=== PATIENT | female | born 2005 | race Caucasian/White ===

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

== ENCOUNTER 2024-11-26 05:27 | Inpatient (IN) ==
--- OUTSIDE RECORDS SUMMARY | 2024-11-26 05:34 | EXTERNAL MEDICAL SUMMARY RPT | Continuity of Care Document ---
Author Organization [place] Address [address] [address] Phone Problems date description facility 2024-09-24 13:45 Supervision of high risk , unspecified, second trimester [facility] 2024-09-24 13:45 Encounter for test, r esult positive [facility] 2024-09-24 13:45 Encounter for superv ision of normal , unspecified, unspecified trimester [facility] 2024-09-24 14:25 Supervision of high risk , unspecified, second trimester [facility] 2024-09-24 14:25 Encounter for test, r esult positive [facility] 2024-09-24 14:25 Encounter for superv ision of normal , unspecified, unspecified trimester [facility] 2024-09-25 00:04 Supervision of high risk , unspecified, second trimester [facility] 2024-09-25 00:04 Encounter for test, r esult positive [facility] 2024-09-25 00:04 Encounter for superv ision of normal , unspecified, unspecified trimester [facility] 2024-09-28 14:27 Supervision of high risk , unspecified, second trimester [facility] 2024-10-12 17:17 Abnormal glucose complicating p regnancy [facility] 2024-10-15 09:58 Abnormal glucose complicating p regnancy [facility] 2024-10-15 09:59 Abnormal glucose complicating p regnancy [facility] 2024-10-19 13:57 Abnormal glucose complicating p regnancy [facility] 2024-11-06 09:24 Encounter for screeni ng for Streptococcus [facility] 2024-11-06 10:09 Encounter for screeni ng for Streptococcus B [facility] 2024-11-07 00:02 Encounter for screeni ng for Streptococcus B [facility] 2024-11-12 15:42 Encounter for screeni ng for Streptococcus B [facility] 2024-11-12 15:44 Encounter for superv ision of normal , unspecified, unspecified [facility] 2024-11-12 15:47 Encounter for screen ing for infections with a predominantly sexual mode of transmission [facility] 2024-11-12 15:48 Supervision of high risk , unspecified, second trimester [facility] 2024-11-12 15:51 Abnormal glucose complicating p regnancy [facility] 2024-11-19 14:46 Other specified dise ases and conditions complicating [facility] Results/Labs test date facility value unit notes Result panel 1 RUBELLA IgG 2024-09-24 14:55 [facility] 10 iu/ml Social History date description facility
[2024-11-26] MEDS ORDERED: CITRIC ACID/SODIUM CITRATE 15 ML UDC PO ONE (05:51)
[2024-11-26] MEDS ORDERED: ACETAMINOPHEN 500 MG TABLET PO ONE (05:51)
[2024-11-26 06:22] LABS: BASOPHILS % (AUTO) 0.6 %; EOSINOPHILS # (AUTO) 0.1 10^3/uL (0.0-0.7); EOSINOPHILS % (AUTO) 1.1 %; HCT - HEMATOCRIT 33.6 % (37.0-47.0); HGB - HEMOGLOBIN 10.6 g/dL (12.0-16.0); LYMPHOCYTES # (AUTO) 2.3 10^3/uL (1.5-3.5); LYMPHOCYTES % (AUTO) 31.8 %; MEAN CORPUSCULAR HEMOGLOBIN 25.7 pg (27.0-31.0); MEAN CORPUSCULAR HGB CONC 31.5 g/dL (32.0-36.0); MEAN CORPUSCULAR VOLUME 81.6 fL (81.0-99.0); MEAN PLATELET VOLUME 13.9 fL (7.9-10.8); MONOCYTES # (AUTO) 0.7 10^3/uL (0.0-1.0); MONOCYTES % (AUTO) 9.7 %; NEUTROPHILS % (AUTO) 56.5 %; PLT - PLATELET COUNT 142 10^3/uL (130-450); RED BLOOD COUNT 4.12 10^6/uL (4.20-5.40); RED CELL DISTRIBUTION WIDTH 14.8 % (12.0-15.0); WHITE BLOOD COUNT 7.1 x10^3/uL (4.8-10.8)
[2024-11-26 06:35] LABS: ALBUMIN 3.4 g/dL (3.2-5.5); ALBUMIN/GLOBULIN RATIO 1.4 (1.0-2.2); BILIRUBIN,TOTAL 0.4 mg/dL (0.2-1.0); CALCIUM 8.3 mg/dL (8.5-10.3); CREATININE 0.5 mg/dL (0.6-1.3); POTASSIUM 3.7 mmol/L (3.5-4.5); TOTAL PROTEIN 5.8 g/dL (6.4-8.9)
[2024-11-26] MEDS ORDERED: OXYTOCIN/SODIUM CHLORIDE 500 ML IV ONE (07:15)
[2024-11-26] MEDS ORDERED: ceFAZolin (2G) 2 GM in SODIUM CHLORIDE 0.9% MINIBAG 100 ML IV ONE (07:33)
--- NOTE | 2024-11-26 07:40 | ANESTHESIA PROCEDURE NOTE ---
Pre-Anesthesia VS, & Labs Diagnosis Surgical Diagnosis:: hx prior C section Procedure Procedure: C Section Vitals Vital Signs: Temp Pulse Resp BP 36.6 C 109 H 18 122/89 11/26/24 05:52 11/26/24 05:52 11/26/24 05:52 11/26/24 05:52 Height (in): 5 ft 7 in Weight (kg): 86.2 kg Body Mass Index: 29.7 BMI Classification: Overweight NPO NPO: >8 hours Is Patient ?: Yes Estimated Due Date:: 11/26/24 Lab Results Current Lab Results: Laboratory Tests 11/26/24 06:02: WBC 7.1, RBC 4.12 L, Hgb 10.6 L, Hct 33.6 L, MCV 81.6, MCH 25.7 L, MCHC 31.5 L, RDW 14.8, Plt Count 142, MPV 13.9 H, Neut # (Auto) 4.0, Lymph # (Auto) 2.3, Sutter # (Auto) 0.7, Eos # (Auto) 0.1, Baso # (Auto) 0.0, Absolute Nucleated RBC 0.00, Nucleated RBC % 0.0, Sodium 135, Potassium 3.7, Chloride 109, Carbon Dioxide 20 L, Anion Gap 6.0, BUN 9, Creatinine 0.5 L, Estimated GFR (MDRD) 157, Glucose 79, Calcium 8.3 L, Total Bilirubin 0.4, AST 14, ALT 7 L, A lkaline Phosphatase 195 H, Total Protein 5.8 L, Albumin 3.4, Globulin 2.4, Albumin/Globulin Ratio 1.4, Blood Type A POSITIVE, Antibody Screen NEGATIVE Lab results reviewed: Yes 11/26/24 06:02 11/26/24 06:02 Meds/Allgy Home Medications Ambulatory Orders Medication Instructions Recorded Confirmed vits no.126-ferrous fum tab PO 06/11/24 11/18/24 28 mg iron-folic acid 800 mcg tablet (Classic ) blood-glucose meter (Blood Glucose #1 ea 10/19/24 11/18/24 Monitoring kit) blood sugar diagnostic (True #100 strips 11/16/24 11/18/24 Metrix Glucose Test Strip) lancets 33 gauge (TRUEplus Lancets) #100 ea 11/16/24 11/18/24 cetirizine 10 mg tablet (24Hour 10 mg PO DAILY PRN allergy symptoms 11/25/24 11/25/24 Allergy) Allergies Allergies Allergy/AdvReac Type Severity Reaction Status Date / Time grass pollen Allergy Hives Verified 09/23/24 09:57 orange Allergy Anaphylaxis Verified 09/23/24 09:57 shellfish derived Allergy Hives Verified 09/23/24 09:57 pollen extracts AdvReac Headache Verified 09/23/24 09:57 PFSH Active Problems All Active Problems Abnormal glucose affecting (Acute) Supervision of high risk in second trimester (Acute) Tricuspid valve regurgitation (Acute) Maternal care for scar from previous delivery (Acute) Syncopal episodes (Acute) Syncopal seizure (Acute) Positive test (Acute) Medical History Medical History Syncope Depression Problem List clean-up per request of Phys. EHR Cmte Seizures Surgical History Surgical History Previous delivery, delivered Family History Family History Mother Ovarian cyst Sister Ovarian cyst Brother Asthma Father Anxiety Depressed Alcoholism Social History Social History Smoking Status: Former smoker If you are a former smoker, when did you quit? (Date/Year): 01/14/2024 Number of Years Smoked: 6 Do you dip or chew tobacco?: No Do you vape?: No Patient requests smoking cessation consult: No Initiate information on smoking cessation: No Living arrangement: At home Living Condition: With family History of Abuse: No POLST Patient has POLST: No Anesthesia Exam (Expanded) Exam General: Alert and Oriented x3 Dental: WNL Mouth Openin Fingerbreadth Neck Mobility: Normal Mallampati classification: II Thyromental Distance: 4-6 cm Respiratory: No respiratory distress Cardiovascular: Regular rate Neurological: Normal speech Mental/Cognitive Status: Alert/Oriented X3 Cognitive Status: Within normal limits Exam Exam Vital Signs: Vital Signs x48h Temp Pulse Resp BP 11/26/24 05:52 36.6 C 109 H 18 122/89 Plan Problem List (1) Abnormal glucose affecting : (2) Syncope: Qualifiers: Syncope type: unspecified Qualified Code(s): R55 - Syncope and collapse (3) Depression: (4) Seizures: (5) Previous delivery, delivered: (6) Supervision of high risk in second trimester: (7) Tricuspid valve regurgitation: (8) Syncopal episodes: Qualifiers: Encounter type: subsequent encounter (9) Syncopal seizure: Plan Anesthesia Type: Spinal and Transverse Abdominis Plane (TAP) Block Regional Block: Per Surgeon's request for Post Op pain control Consent for Procedure(s) Verified and Reviewed: Yes Code Status: Attempt Resuscitation ASA Classification ASA classification: 2-Mild systemic disease Is this case an emergency?: No
[2024-11-26] MEDS: LACTATED RINGERS 1,000 ML IV SCH ×2 (07:48→12:18)
--- NOTE | 2024-11-26 09:55 | HISTORY & PHYSICAL EXAMINATION ---
Admit History Visit Reason Visit Reason: Other (Repeat delivery, bilateral salpingectomy) Smoking Status: Former smoker Other Maternal History Other Maternal History: Beulah is a 19 yo at 39w5d who presents today for scheduled repeat delivery, bilateral salpingectomy. Feeling well today. Absolutely certain regarding desire for permanent sterilization. Reports she and her partner have been thinking about it this whole , no doubts about their decision. monitoring form, copied from record: LMP: unknown (approximate date 02/07/2024) GENIE by LMP: 11/13/2024 US: 07/01/24 Final GENIE: 11/28/24 PROBLEMS: - mild tricuspid regurgitation: diagnosed s/p urgent delivery following syncopal episode in triage at 35.6wks. Did not follow up for cardiology/neurology between pregnancies. May have an aspect of POTS -MFM consult discussed mild regurgication. No ebstein anomaly noted. -cardiology consult initiated -neurology consult initiated -MD only patient -Less fainting episodes this , feels less problematic. -Holter monitor if symptoms worsen. -Previous delivery -Urgent for indications -Discussed TOLAC, but thinks a planned will be better. Pre- Weight: 150 BMI: 23 Blood type: A+ Antibody Screen: negative CBC: 09/24/24 11.1/35.9 194 RUB: NON immune VZV:immune HBsAg: Negative HepC: NR RPR: HIV: NR Flu: declined Covid: declined PAP: /age 20 GC/CT: negative HSV: denies in self and partner Genetic testing: declines FAS:Placenta: posterior no previa Cord: 3VC ELIZ: WNL EFW: 437.6g 50gm OGCT: 147 3HR GTT: Did not tolerate. Profiling now. TDAP: declines 09/09/24 Breast Pump: given RSV: Non reactive Antibody screen: CBC: H/H/PLT 11/04/24 11.3/36.8 167 RPR: Non reactive GBS: negative MOD: 39-week RLTCS PP BC: Possible BTL vs nexplanon vs IUD PE: Vitals signs reviewed Gen: NAD Resp: non labored respirations Chest: non labored respirations Abd: gravid, non tender. Ext: SCDs in place NST: reactive, Cat 1 Labs: CBC, CMP, T&S reviewed A/P: Beulah is a 19 yo at 39w5d who presents today for scheduled repeat delivery, bilateral salpingectomy. We reviewed risks of delivery including pain, bleeding (possibly requiring blood transfusion or as a life-saving measure hysterectomy), infection, damage to nearby structures including bowel/bladder, longer recovery time , increased risk for DVT, risk of /injury to mom or baby. With regards to bilateral salpingectomy, we discussed procedure involves complete removal of fallopian tubes. We reviewed risk of regret as well as permanence of procedure. Understands IVF procedure would be necessary in the future if she were to decide for , which can be very costly. We reviewed alternative reversible options for contraception including LARC devices as well as vasectomy. She is absolutely certain regarding her choice for permanent sterilization and desires to proceed with bilateral salpingectomy. [facility] consents were previously signed in clinic. Surgical consent was signed. Ciara Hidalgo MD HPI Current : Current EDU 11/26/24 Gestation 39 Weeks and 5 Days Para 1 Vital Signs Temperature 97.9 F 11/26/24 05:52 Pulse Rate 109 H 11/26/24 05:52 Respiratory Rate 18 11/26/24 05:52 Blood Pressure 122/89 11/26/24 05:52 NST Procedure NST Procedure: NST Procedure Start Date 11/26/24 Start Time 05:41 Stop Time 06:05 Vibroacoustic Stimulation Used No Patient States Movement Yes Meds/Allgy Home Medications Ambulatory Orders Medication Instructions Recorded Confirmed vits no.126-ferrous fum tab PO 06/11/24 11/18/24 28 mg iron-folic acid 800 mcg tablet (Classic ) blood-glucose meter (Blood Glucose #1 ea 10/19/24 11/18/24 Monitoring kit) blood sugar diagnostic (True #100 strips 11/16/24 11/18/24 Metrix Glucose Test Strip) lancets 33 gauge (TRUEplus Lancets) #100 ea 11/16/24 11/18/24 cetirizine 10 mg tablet (24Hour 10 mg PO DAILY PRN allergy symptoms 11/25/24 11/25/24 Allergy) Allergies Allergies Allergy/AdvReac Type Severity Reaction Status Date / Time grass pollen Allergy Hives Verified 11/26/24 07:48 orange Allergy Anaphylaxis Verified 11/26/24 07:48 shellfish derived Allergy Hives Verified 11/26/24 07:48 codeine AdvReac Mild Nausea Verified 11/26/24 07:48 pollen extracts AdvReac Headache Verified 11/26/24 07:48 PFSH Active Problems All Active Problems Abnormal glucose affecting (Acute) Maternal care for scar from previous delivery (Acute) Positive test (Acute) Supervision of high risk in second trimester (Acute) Syncopal episodes (Acute) Syncopal seizure (Acute) Tricuspid valve regurgitation (Acute) Medical History Medical History Syncope Depression Problem List clean-up per request of PhysJoshua LINN Cmte Seizures Surgical History Surgical History Previous delivery, delivered Family History Family History Mother Ovarian cyst Sister Ovarian cyst Brother Asthma Father Anxiety Depressed Alcoholism Social History Social History Smoking Status: Former smoker If you are a former smoker, when did you quit? (Date/Year): 01/14/2024 Number of Years Smoked: 6 Do you dip or chew tobacco?: No Do you vape?: No Patient requests smoking cessation consult: No Initiate information on smoking cessation: No Living arrangement: At home Living Condition: With family History of Abuse: No POLST Patient has POLST: No Physical Abdominal Exam Vital Signs: Temp Pulse Resp BP 97.9 F 109 H 18 122/89 11/26/24 05:52 11/26/24 05:52 11/26/24 05:52 11/26/24 05:52 Plan for Labor Plan For Labor I expect patient to be DC'd or transferred within 96 hours.: Yes Conclusion/Plan Problem List (1) Abnormal glucose affecting : (2) Syncope: Qualifiers: Syncope type: unspecified Qualified Code(s): R55 - Syncope and collapse (3) Depression: (4) Seizures: (5) Previous delivery, delivered: (6) Supervision of high risk in second trimester: (7) Tricuspid valve regurgitation: (8) Syncopal seizure: Lab Results Lab results reviewed: Yes 11/26/24 06:02 11/26/24 06:02
[2024-11-26] MEDS ORDERED: ACETAMINOPHEN 1,000 MG/100 ML 1,000 MG/100 ML BAG IV ONE (10:06)
[2024-11-26] MEDS ORDERED: DEXMEDETOMIDINE 200 MCG/2 ML VIAL ONE (10:06)
[2024-11-26] MEDS ORDERED: SODIUM CHLORIDE 0.9% 10 ML VIAL ONE (10:26)
[2024-11-26] MEDS ORDERED: DEXAMETHASONE 4 MG/ML VIAL ONE (10:26)
[2024-11-26] MEDS ORDERED: ePHEDrine 50 MG/ML VIAL IVP ONE (10:26)
[2024-11-26] MEDS ORDERED: PHENYLEPHRINE HCL 0.5 MG/5 ML AMPULE ONE ×2 (10:26→10:41)
[2024-11-26] MEDS ORDERED: ROPIVACAINE 0.5% PF 20 ML VIAL ONE (10:27)
[2024-11-26] MEDS ORDERED: KETOROLAC 30 MG/ML VIAL ONE (10:40)
[2024-11-26] MEDS ORDERED: ONDANSETRON 4 MG/2 ML VIAL ONE (10:40)
[2024-11-26] MEDS ORDERED: HYDROmorphone 0.5 MG/0.5 ML SYRINGE IVP PRN (10:48)
[2024-11-26] MEDS ORDERED: ePHEDrine 50 MG/ML VIAL IVP PRN (10:48)
[2024-11-26] MEDS ORDERED: NALOXONE 0.4 MG/ML VIAL IVP PRN ×2 (10:48→11:40)
[2024-11-26] MEDS ORDERED: MORPHINE 2 MG/ML CARPUJECT IVP PRN (10:48)
[2024-11-26] MEDS ORDERED: ATROPINE ABBOJECT 1 MG/10 ML SYRINGE IVP PRN (10:48)
[2024-11-26] MEDS ORDERED: METOCLOPRAMIDE 10 MG/2 ML VIAL IVP PRN (10:48)
[2024-11-26] MEDS ORDERED: fentaNYL 100 MCG/2 ML VIAL IVP PRN (10:48)
[2024-11-26] MEDS ORDERED: ONDANSETRON 4 MG/2 ML VIAL IVP PRN (10:48)
[2024-11-26] MEDS ORDERED: OXYTOCIN 10 UNIT/ML VIAL ONE (10:55)
[2024-11-26] MEDS ORDERED: oxyCODONE 5 MG TABLET PO PRN (11:40)
[2024-11-26] MEDS ORDERED: HYDROCORTISONE 1% CREAM 28 GM TUBE TOP PRN (11:40)
[2024-11-26] MEDS ORDERED: hydrALAZINE INJ 20 MG/ML VIAL IVP PRN ×2 (11:40)
[2024-11-26] MEDS ORDERED: MAGNESIUM HYDROXIDE 2,400 MG/30 ML UDC PO PRN (11:40)
[2024-11-26] MEDS ORDERED: LABETALOL 20 MG/4 ML SYRINGE IVP PRN ×3 (11:40)
[2024-11-26] MEDS ORDERED: OXYTOCIN/SODIUM CHLORIDE 500 ML IV PRN (11:40)
[2024-11-26] MEDS ORDERED: NIFEdipine 10 MG CAPSULE PO PRN (11:40)
--- NOTE | 2024-11-26 11:47 | OPERATIVE REPORT ---
Operative Report General Admit Date: 11/26/24 Procedure Data: Operation Date: 11/26/24 07:30 Proposed Procedures p Section(Not Applicable) - Sanjay Iqbal MD s Bilateral Tubal Ligation(Not Applicable) - Sanjay Iqbal MD Actual Procedures p Section W/BILATERAL TUBAL LIGATION(Not Applicable) - Ciara Hidalgo MD Pre-Op Diagnosis: REPEAT Anesthesia Type Spinal Case Staff Anesthesia Provider: Liya Miller Anesthesia Provider: Harsha Dominguez Assisting Provider: Kathleen Thompson Case Times Procedure Start: 11/26/24 10:25 Procedure End: 11/26/24 11:25 Time out: 11/26/24 10:24 Other Other Information/Narrative: DATE OF PROCEDURE: 11/26/24 Surgeon: Ciara Hidalgo MD Groundsman: MD Dr. Jay Tenorio was necessary as an assisted living assistant for the entire procedure for adequate retraction and visualization, to shorten operative time, to assist with delivery of the , and to lower the risk of surgical injury Pre-Op Diagnosis: History of delivery, desires permanent sterilization Post-Op Diagnosis: same Procedures: Repeat low transverse delivery, bilateral salpingectomy Findings: Minimal adhesive disease. Mild vesicouterine adhesions. Infant in cephalic presentation with clear amniotic fluid. Otherwise normal appearing uterus/tubes/ovaries. Specimens: bilateral fallopian tubes Anesthesia Technique: spinal Estimated Blood Loss: 700cc Blood Replacement: none Fluid Replacement: 2100cc Drains: holm, drained 100cc clear yellow urine Complications: none Condition: stable Procedure in Detail: The patient was taken to the operating room where spinal anesthesia was placed. Holm catheter was placed. She was prepared and draped in the normal sterile fashion in the dorsal supine position with a leftward tilt. 2g Ancef was given for prophylaxis. A Pfannenstiel skin incision was made with the scalpel and carried down through the subcutaneous tissue in the midline. The remainder of the subcutaneous tissue was then with the bovie. The fascia was incised in the midline and the incision was extended with Mayos. The superior aspect of the fascial incision was grasped with two Johnny clamps, elevated, and the underlying rectus muscles dissected off both bluntly and with the aid of the Mayos. The inferior aspect of the fascial incision was grasped with two Johnny clamps, elevated, and the underlying rectus muscles dissected off both bluntly and with the aid of the Mayos. The peritoneum was grasped and elevated with hemostats and then entered sharply with Metzenbaum scissors. This incision was extended bluntly and with the bovie. The bladder blade was inserted, the vesicouterine peritoneum was identified, grasped with pickups and entered sharply with the Metzenbaum scissors. This incision was extended laterally with Metzenbaum scissors, and the bladder flap created digitally. The bladder blade was reinserted. The lower uterine segment was incised in a transverse fashion with the scalpel. The uterine incision was extended bluntly. The bladder blade was removed and the infants head was brought to the hysterotomy. Fundal pressure applied and the infant delivered atraumatically. The cord was clamped and cut after 60 sec and the was handed off to the waiting provider. The placenta was removed with gentle uterine massage and cord traction. The uterus was exteriorized and cleared of all clots and debris with moist laparotomy sponges. The uterine incision was repaired with 0 Vicryl in a running fashion. A second layer of 0 Vicryl was used in an imbricating fashiom. Multiple figure of eight stitches were required at the left angle to achieve hemostasis. An additional figure or eight stitch was placed on the right inferior edge for hemostasis. The fallopian tubes were each transected from the mesosalpinx and uterus using the ligasure device. Hemostasis noted. The posterior cul-de-sac was cleared of all clots and debris with laparotomy sponges, and the uterus was returned to the abdomen. The gutters were cleared of all clots. Oozing at the bladder flap was cauterized with the bovie. Surgicel powder was placed. The rectus muscles were carefully examined and hemostatic. The fascia was reapproximated with 0 PDS in a running fashion. The needle popped of the suture approximately 3 cm from the right angle. The right side of the fascial incision was closed with a separate 0 PDS and the sutures were tied together. The subcutaneous tissues was irrigated. The subcutaneous tissue was reapproximated with 2-0 Vicryl, and the skin was closed with 4-0 monocryl. The patient tolerated the procedure well. Sponge, lap, needle, and instrument counts were correct at the end of the procedure. The patient was taken to the recovery room in stable Kourtnee Rocky, MD
[2024-11-26] MEDS ORDERED: KETOROLAC 30 MG/ML VIAL IVP SCH (12:00)
--- NOTE | 2024-11-26 14:24 | PHARMACY PROGRESS NOTE ---
Best Possible Medication History Admit Date and Time: 11/26/24 230969 Home Medications Medication Instructions Recorded Confirmed Type vits no.126-ferrous fum 1 tab PO DAILY 06/11/24 11/26/24 History 28 mg iron-folic acid 800 mcg tablet (Classic ) blood-glucose meter (Blood Glucose #1 ea 10/19/24 11/18/24 Rx Monitoring kit) blood sugar diagnostic (True #100 strips 11/16/24 11/18/24 Rx Metrix Glucose Test Strip) lancets 33 gauge (TRUEplus Lancets) #100 ea 11/16/24 11/18/24 Rx cetirizine 10 mg tablet (24Hour 10 mg PO DAILY PRN allergy symptoms 11/25/24 11/25/24 History Allergy) Processed by: Pharmacy (Medication reconciliation completed by Thread SeparatorEladia) Medications reviewed in ED?: No Medication History completed: Yes Patient Interview: Completed Secondary Source(s): Insurance records [facility] Statement: As the person ultimately responsible for medication therapy, providers are able to order a medication from an existing home medication list in [facility] via the "Reconcile Routine" prior to Confirmation of that medication by user support analyst supervisor. Such practice is discouraged except when the physician, in their clinical judgment, deems that a medical need exists for a medication without regard to previous use.
--- NOTE | 2024-11-26 16:03 | ANESTHESIA POST OP EVALUATION ---
Anesthesia Post Eval Post Anesthesia Eval Vitals: Last Vital Signs Temp 36.7 C 11/26/24 13:25 Pulse 74 11/26/24 13:25 Resp 16 11/26/24 13:25 BP 101/61 11/26/24 13:25 Pulse Ox 99 11/26/24 13:25 CV Function Including HR & BP: Stable Pain Control: Satisfactory Nausea & Vomiting: Negative Mental Status: Baseline Respiratory Status: Airway Patent Hydration Status: Satisfactory Anesthesia Complications: None
[2024-11-26] MEDS: KETOROLAC 30 MG/ML VIAL IVP SCH (17:41)
[2024-11-26] MEDS: ACETAMINOPHEN 500 MG TABLET PO SCH (18:06)
[2024-11-26] MEDS: DOCUSATE SODIUM 100 MG CAPSULE PO SCH (20:54)
[2024-11-27 07:32] LABS: HCT - HEMATOCRIT 30.9 % (37.0-47.0); HGB - HEMOGLOBIN 9.5 g/dL (12.0-16.0); MEAN CORPUSCULAR HEMOGLOBIN 25.7 pg (27.0-31.0); MEAN CORPUSCULAR HGB CONC 30.7 g/dL (32.0-36.0); MEAN CORPUSCULAR VOLUME 83.5 fL (81.0-99.0); MEAN PLATELET VOLUME 13.8 fL (7.9-10.8); RED BLOOD COUNT 3.7 10^6/uL (4.20-5.40); RED CELL DISTRIBUTION WIDTH 14.9 % (12.0-15.0); WHITE BLOOD COUNT 12.8 x10^3/uL (4.8-10.8)
[2024-11-27 08:46] VITALS: O2SAT 98
--- NOTE | 2024-11-27 11:02 | PROVIDER PROGRESS NOTE ---
Subjective Subjective Subjective: Beulah is a 19 yo at 39w5d who presents today for scheduled repeat delivery, bilateral salpingectomy. Feeling well today. Absolutely certain regarding desire for permanent sterilization. Reports she and her partner have been thinking about it this whole , no doubts about their decision. monitoring form, copied from record: LMP: unknown (approximate date 02/07/2024) GENIE by LMP: 11/13/2024 US: 07/01/24 Final GENIE: 11/28/24 PROBLEMS: - mild tricuspid regurgitation: diagnosed s/p urgent delivery following syncopal episode in triage at 35.6wks. Did not follow up for cardiology/neurology between pregnancies. May have an aspect of POTS -MFM consult discussed mild regurgication. No ebstein anomaly noted. -cardiology consult initiated -neurology consult initiated -MD only patient -Less fainting episodes this , feels less problematic. -Holter monitor if symptoms worsen. -Previous delivery -Urgent for indications -Discussed TOLAC, but thinks a planned will be better. Pre- Weight: 150 BMI: 23 Blood type: A+ Antibody Screen: negative CBC: 09/24/24 11.1/35.9 194 RUB: NON immune VZV:immune HBsAg: Negative HepC: NR RPR: HIV: NR Flu: declined Covid: declined PAP: /age 20 GC/CT: negative HSV: denies in self and partner Genetic testing: declines FAS:Placenta: posterior no previa Cord: 3VC ELIZ: WNL EFW: 437.6g 50gm OGCT: 147 3HR GTT: Did not tolerate. Profiling now. TDAP: declines 09/09/24 Breast Pump: given RSV: Non reactive Antibody screen: CBC: H/H/PLT 11/04/24 11.3/36.8 167 RPR: Non reactive GBS: negative MOD: 39-week RLTCS PP BC: Possible BTL vs nexplanon vs IUD Current Medications Current Medications Current Medications: Current Medications Generic Name Dose Route Start Last Admin Trade Name Freq PRN Reason Stop Dose Admin Acetaminophen 1,000 mg 11/26/24 12:00 11/27/24 09:46 Acetaminophen 500 Mg Tablet PO 1,000 mg Q8H JOSE Administration Docusate Sodium 200 mg 11/26/24 21:00 11/27/24 08:33 Docusate Sodium 100 Mg Capsule PO 200 mg BID JOSE Administration Hydralazine HCl 10 mg 11/26/24 11:40 Hydralazine Inj 20 Mg/Ml Vial IVP .ONCE PRN SBP> or= 160 OR DBP> or= 110 Protocol Hydralazine HCl 5 - 20 mg 11/26/24 11:40 Hydralazine Inj 20 Mg/Ml Vial IVP Q20M PRN SBP> or= 160 OR DBP> or= 110 Protocol Hydrocortisone 1 applic 11/26/24 11:40 Hydrocortisone 1% Cream 28 Gm Tube TOP QID PRN Hemorrhoids Oxytocin/Sodium Chloride 500 mls @ 999 mls/hr 11/26/24 11:40 Pitocin/Sodium Chloride IV PRN PRN POST- HEMORR PREVENTION Protocol 999 MILLIUNIT/MIN Ibuprofen 600 mg 11/27/24 12:00 Ibuprofen 600 Mg Tablet PO Q6HR JOSE Labetalol HCl 20 - 40 mg 11/26/24 11:40 Labetalol 20 Mg/4 Ml Syringe IVP Q10M PRN SBP> or= 160 OR DBP> or= 110 Protocol Labetalol HCl 20 mg 11/26/24 11:40 Labetalol 20 Mg/4 Ml Syringe IVP .ONCE PRN SBP> or= 160 OR DBP> or= 110 Protocol Labetalol HCl 20 - 80 mg 11/26/24 11:40 Labetalol 20 Mg/4 Ml Syringe IVP Q10M PRN SBP> or= 160 OR DBP> or= 110 Protocol Magnesium Hydroxide 2,400 mg 11/26/24 11:40 Magnesium Hydroxide 2,400 Mg/30 Ml Udc PO Q8HR PRN Constipation Naloxone HCl 0.4 mg 11/26/24 11:40 Naloxone 0.4 Mg/Ml Vial IVP .ONCE PRN Opioid overdose Nifedipine 10 - 20 mg 11/26/24 11:40 Nifedipine 10 Mg Capsule PO Q20M PRN SBP> or= 160 OR DBP> or= 110 Protocol Oxycodone HCl 5 mg 11/26/24 11:40 Oxycodone 5 Mg Tablet PO Q4HR PRN Severe Pain 6 -10 Objective Vital Signs/Intake & Output Vital Signs: Vital Signs x48h Temp Pulse Resp BP Pulse Ox 11/27/24 08:44 37.0 C 88 16 108/74 98 11/27/24 05:00 36.7 C 78 16 100/64 100 Intake & Output: Intake & Output 11/24/24 11/25/24 11/26/24 11/27/24 23:59 23:59 23:59 23:59 Intake Total 6305 / 6305 150 / 150 Output Total 1820 / 1820 500 / 500 Balance 4485 / 4485 -350 / -350 Weight (kg) 86.2 kg Lab Results 11/27/24 06:49 11/26/24 06:02 Other Labs: Lab Results x24hrs 11/27/24 Range/Units 06:49 WBC 12.8 H (4.8-10.8) x10^3/uL RBC 3.70 L (4.20-5.40) 10^6/uL Hgb 9.5 L (12.0-16.0) g/dL Hct 30.9 L (37.0-47.0) % MCV 83.5 (81.0-99.0) fL MCH 25.7 L (27.0-31.0) pg MCHC 30.7 L (32.0-36.0) g/dL RDW 14.9 (12.0-15.0) % Plt Count 153 (130-450) 10^3/uL MPV 13.8 H (7.9-10.8) fL Assessment/Plan Problem List (1) Abnormal glucose affecting : (2) Syncope: Qualifiers: Syncope type: unspecified Qualified Code(s): R55 - Syncope and collapse (3) Depression: (4) Seizures: (5) Previous delivery, delivered: (6) Supervision of high risk in second trimester: (7) Tricuspid valve regurgitation: (8) Syncopal seizure:
--- NOTE | 2024-11-27 11:33 | PROVIDER PROGRESS NOTE ---
Subjective Prog Note Date Prog Note Date: 11/27/24 Prog Note Time: 15:42 Subjective Pt reports feeling: Improved Subjective: POD #1 s/p uncomplicated repeat LTCS with bilateral salpingectomy. She is feeling well and has been up and ambulating in the room. Pain has been manageable with oral medications. She is tolerating a regular diet without nausea or vomiting, voiding freely, and passing flatus. Baby is at the bedside and doing well. She would like to go home tonight if possible. monitoring form, copied from record: LMP: unknown (approximate date 02/07/2024) GENIE by LMP: 11/13/2024 US: 07/01/24 Final GENIE: 11/28/24 PROBLEMS: - mild tricuspid regurgitation: diagnosed s/p urgent delivery following syncopal episode in triage at 35.6wks. Did not follow up for cardiology/neurology between pregnancies. May have an aspect of POTS -MFM consult discussed mild regurgitation. No Ebstein's anomaly noted. -cardiology consult initiated -neurology consult initiated -MD only patient -Less fainting episodes this , feels less problematic. -Holter monitor if symptoms worsen. -Previous delivery -Urgent for indications -Discussed TOLAC, but thinks a planned will be better. Pre- Weight: 150 BMI: 23 Blood type: A+ Antibody Screen: negative CBC: 09/24/24 11.1/35.9 194 RUB: NON immune VZV:immune HBsAg: Negative HepC: NR RPR: HIV: NR Flu: declined Covid: declined PAP: /age 20 GC/CT: negative HSV: denies in self and partner Genetic testing: declines FAS:Placenta: posterior no previa Cord: 3VC ELIZ: WNL EFW: 437.6g 50gm OGCT: 147 3HR GTT: Did not tolerate. Profiling now. TDAP: declines 09/09/24 Breast Pump: given RSV: Non reactive Antibody screen: CBC: H/H/PLT 11/04/24 11.3/36.8 167 RPR: Non reactive GBS: negative MOD: 39-week RLTCS PP BC: Possible BTL vs nexplanon vs IUD Current Medications Current Medications Current Medications: Current Medications Generic Name Dose Route Start Last Admin Trade Name Freq PRN Reason Stop Dose Admin Acetaminophen 1,000 mg 11/26/24 12:00 11/27/24 09:46 Acetaminophen 500 Mg Tablet PO 1,000 mg Q8H JOSE Administration Docusate Sodium 200 mg 11/26/24 21:00 11/27/24 08:33 Docusate Sodium 100 Mg Capsule PO 200 mg BID JOSE Administration Hydralazine HCl 10 mg 11/26/24 11:40 Hydralazine Inj 20 Mg/Ml Vial IVP .ONCE PRN SBP> or= 160 OR DBP> or= 110 Protocol Hydralazine HCl 5 - 20 mg 11/26/24 11:40 Hydralazine Inj 20 Mg/Ml Vial IVP Q20M PRN SBP> or= 160 OR DBP> or= 110 Protocol Hydrocortisone 1 applic 11/26/24 11:40 Hydrocortisone 1% Cream 28 Gm Tube TOP QID PRN Hemorrhoids Oxytocin/Sodium Chloride 500 mls @ 999 mls/hr 11/26/24 11:40 Pitocin/Sodium Chloride IV PRN PRN POST- HEMORR PREVENTION Protocol 999 MILLIUNIT/MIN Ibuprofen 600 mg 11/27/24 12:00 Ibuprofen 600 Mg Tablet PO Q6HR [facility] Labetalol HCl 20 - 40 mg 11/26/24 11:40 Labetalol 20 Mg/4 Ml Syringe IVP Q10M PRN SBP> or= 160 OR DBP> or= 110 Protocol Labetalol HCl 20 mg 11/26/24 11:40 Labetalol 20 Mg/4 Ml Syringe IVP .ONCE PRN SBP> or= 160 OR DBP> or= 110 Protocol Labetalol HCl 20 - 80 mg 11/26/24 11:40 Labetalol 20 Mg/4 Ml Syringe IVP Q10M PRN SBP> or= 160 OR DBP> or= 110 Protocol Magnesium Hydroxide 2,400 mg 11/26/24 11:40 Magnesium Hydroxide 2,400 Mg/30 Ml Udc PO Q8HR PRN Constipation Naloxone HCl 0.4 mg 11/26/24 11:40 Naloxone 0.4 Mg/Ml Vial IVP .ONCE PRN Opioid overdose Nifedipine 10 - 20 mg 11/26/24 11:40 Nifedipine 10 Mg Capsule PO Q20M PRN SBP> or= 160 OR DBP> or= 110 Protocol Oxycodone HCl 5 mg 11/26/24 11:40 Oxycodone 5 Mg Tablet PO Q4HR PRN Severe Pain 6 -10 Objective Vital Signs/Intake & Output Reviewed Vital Signs: Yes Vital Signs: Vital Signs x48h Temp Pulse Resp BP Pulse Ox 11/27/24 08:44 37.0 C 88 16 108/74 98 11/27/24 05:00 36.7 C 78 16 100/64 100 Intake & Output: Intake & Output 11/24/24 11/25/24 11/26/24 11/27/24 23:59 23:59 23:59 23:59 Intake Total 6305 / 6305 150 / 150 Output Total 1820 / 1820 500 / 500 Balance 4485 / 4485 -350 / -350 Weight (kg) 86.2 kg Objective General Appearance: positive No acute distress and Alert Eyes Bilateral: positive Normal inspection Neck: positive Nml inspection Respiratory: positive No respiratory distress and Breath sounds nml Cardiovascular: positive Regular rate & rhythm and No murmur Abdomen: positive Nml bowel sounds, No distention and Other (Appropriate tenderness to palpation. Uterus at U-1 and nontender. ) Back: positive Nml inspection Skin: positive Color nml, Warm and Other (Incision: steri-strips clean, dry, and intact; no wound separation, erythema or discharge.) Extremities: positive Non-tender, Full ROM and Nml appearance Neurologic/Psychiatric: positive Oriented x3, Sensation nml and Mood/affect nml Lab Results 11/27/24 06:49 11/26/24 06:02 Other Labs: Lab Results x24hrs 11/27/24 Range/Units 06:49 WBC 12.8 H (4.8-10.8) x10^3/uL RBC 3.70 L (4.20-5.40) 10^6/uL Hgb 9.5 L (12.0-16.0) g/dL Hct 30.9 L (37.0-47.0) % MCV 83.5 (81.0-99.0) fL MCH 25.7 L (27.0-31.0) pg MCHC 30.7 L (32.0-36.0) g/dL RDW 14.9 (12.0-15.0) % Plt Count 153 (130-450) 10^3/uL MPV 13.8 H (7.9-10.8) fL Assessment/Plan Problem List (1) care following delivery: Impression: POD #1 s/p repeat LTCS with bilateral salpingectomy (for sterilization). Doing well and desiring discharge home later tonight. She is afeb with normal/stable VS and is meeting discharge criteria. - Cont with routine care: ambulation, regular diet, oral pain medications. - Completed discharge teaching, and plan for discharge later tonight. (2) Abnormal glucose affecting : (3) Supervision of high risk in second trimester: (4) Tricuspid valve regurgitation: (5) Syncopal seizure:
[2024-11-27] MEDS: IBUPROFEN 600 MG TABLET PO SCH (12:10)
[2024-11-27 12:14] VITALS: BP 114/70; TEMP 97.5
--- NOTE | 2024-11-27 20:04 | Labor Flowsheet ---
Labor Flowsheet Datetime Report Generated by CPN: 11/27/2024 20:04 Datetime: 11/26/2024 13:04 VAGINAL EXAM Membranes Ruptured Date/Time: 11/26/2024 10:58 Membranes Rupture Method: Artificial Amniotic Fluid Color: Clear
--- NOTE | 2024-12-04 13:25 | MISCELLANEOUS PROVIDER NOTE ---
Miscellaneous Provider Note - Note: Patient's admission order was canceled in error by RN. Inpatient admission o rder on 11/26 at 0551 was correct. Ciara Hidalgo MD
== END 2024-11-27 20:03 | disposition home or self-care (01) | DRG 783 ==
LOC: FBP 05:27
PROVIDERS: ADMIT Obstetrics & Gynecology; ATTEND Obstetrics & Gynecology
DX: Z87.59 Personal history of other complications of pregnancy, childbirth and the puerperium; Z3A.39 39 weeks gestation of pregnancy; Z37.0 Single live birth; O34.211 Maternal care for low transverse scar from previous cesarean delivery; O99.42 Diseases of the circulatory system complicating childbirth; Z30.2 Encounter for sterilization; I07.1 Rheumatic tricuspid insufficiency